=== PATIENT | male | born 1950 | race Caucasian/White ===

== ENCOUNTER 2019-07-06 01:19 | Inpatient (IN) | payer OTHER ==
[~2019-07-06] VITALS: Ht 175.3 cm; Wt 124.7 kg
[2019-07-06] VITALS (7 sets, daily range): BP systolic 142–194; BP diastolic 59–92
[2019-07-06] MEDS ORDERED: NORVASC 2.5 MG2.5 M1 PO (01:33)
[2019-07-06] MEDS ORDERED: LIPITOR10 MG PO (01:33)
[2019-07-06 02:15] LABS: ABSOLUTE EOSINOPHILS 0.2 thou/uL (0.0-0.7); ABSOLUTE LYMPHOCYTES 1.4 thou/uL (0.8-5.3); ABSOLUTE MONOCYTES 0.8 thou/uL (0.0-1.2); ABSOLUTE NEUTROPHILS 9.3 thou/uL (1.6-8.1); BASOPHILS 0.3 %; EOSINOPHILS 1.9 %; HEMATOCRIT 42.1 % (42.0-52.0); HEMOGLOBIN 14.2 gm/dL (14.0-18.0); LYMPHOCYTES 12.2 %; MCH 32.1 pg (26.0-34.0); MCHC 33.8 g/dL (28.0-37.0); MONOCYTES 6.6 %; MPV 9.2 fl. (7.2-11.1); NUCLEATED RBCS 0 /100WBC; PLATELET COUNT* 180 thou/uL (150-400); RBC 4.43 mil/uL (4.50-6.00); RDW-CV 14.5 % (10.5-14.5); WBC 11.8 thou/uL (4.0-11.0)
[2019-07-06 02:44] LABS: CALCIUM 8.6 mg/dL (8.5-10.1); CREATININE 1.1 mg/dL (0.6-1.3)
[2019-07-06 02:49] LABS: ALBUMIN 3.6 g/dL (3.4-5.0); TOTAL BILIRUBIN 0.4 mg/dL (<0.1-1.0)
[2019-07-06 03:01] LABS: URINE BILIRUBIN NEGATIVE (Negative); URINE BLOOD 3+ (Negative); URINE CLARITY CLEAR; URINE COLOR YELLOW; URINE GLUCOSE-RANDOM NEGATIVE (Negative); URINE KETONES NEGATIVE (Negative); URINE LEUKOCYTES-REFLEX NEGATIVE (Negative); URINE NITRITE-REFLEX NEGATIVE (Negative); URINE PROTEIN NEGATIVE (Negative); URINE UROBILINOGEN 0.2 E.U./dl (0.2-1.0)
[2019-07-06 04:10] LABS: CASTS None Seen /LPF (None Seen); SQUAMOUS 0-3 Few /LPF (0-3)
[2019-07-06 04:11] LABS: BACTERIA-REFLEX 1-9 Few /HPF (None Seen); CRYSTALS None Seen /LPF (None Seen); URINE RBC >20 Many /HPF (0-2); URINE WBC-REFLEX 0-5 Rare /HPF (0-5)
--- NOTE | 2019-07-06 11:42 | EKG ---
[place] [address] ELECTROCARDIOGRAM REPORT Name: EVIN MAYS Room: [address] ADM IN .R.#: [id number] Admission: 07/06/19 Attend Phys: Edis Tenorio MD Discharge: Date of : 50 Report #: [id number] THIS REPORT FOR: //name// [facility] Test Date: 2019-07-06 Test Time: 10:27:01 Pat Name: EVIN MAYS Department: Room: [address] Gender: M System Operator: : 1950 Requested By: Junior Polanco Order Number: [id number] Adenike MD: Ron Ortiz Measurements Intervals [place] Rate: 78 P: 58 UT: 180 QRS: 66 QRSD: 87 T: 87 QT: 498 QTc: 568 Interpretive Statements Sinus rhythm Borderline repolarization abnormality Prolonged QT interval No previous ECG available for comparison Electronically Signed On 07-06-2019 11:41:52 CDT by Ron Ortiz [email or web address] <ELECTRONICALLY SIGNED> By: Ron Ortiz MD, [facility] 07/06/19 1141 1027 26 Ron Ortiz MD, FACC /EPI
--- NOTE | 2019-07-06 12:08 | OP ---
[address] [address] OPERATIVE REPORT Name: DAVONEVIN G Room: [address] IN M.R.#: [id number] Admission: 07/06/19 Attend Phys: Edis Tenorio MD Discharge: Date of : 50 Report #: [id number] THIS REPORT FOR: //name// CC: [facility] Edis Tenorio Kiera Caldera DATE OF SERVICE: 07/06/2019 PREOPERATIVE DIAGNOSIS: Left ureteral obstruction. POSTOPERATIVE DIAGNOSIS: Left ureteral obstruction, secondary to left proximal ureteral stone. PROCEDURES PERFORMED: Cystoscopy, left retrograde pyelogram, left JJ stent placement. SURGEON: Hector White MD COMPLICATIONS: None. DRAINS: Included a 6 x 26-cm double-J ureteral stent. SPECIMEN: None. ANESTHESIA TYPE: General. BLOOD LOSS: Negligible. STATEMENT OF MEDICAL INDICATION: This is a 68-year-old male who presented with severe left-sided flank pain. He has never had stones before, but was found by CT scan to have a 7 mm left proximal ureteral stone. Being given the options of management including MET, outpatient ESWL, or cystoscopy with JJ stent, possible ureteroscopy. He has opted for the latter. He understands the procedure, risks, potential complications including but not limited to bleeding, infection, injury to the urinary tract or adjacent structures, need for further procedures. He also understands this is very likely that a stent will be placed only and ureteroscopy may not be able to be performed. This would necessitate a delayed ureteroscopy or lithotripsy. DESCRIPTION OF PROCEDURE: Following informed consent, the patient was taken to the operating room and placed under general anesthesia. He was prepped and draped in sterile fashion in the dorsal lithotomy position. Cystoscopy was carried out. 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 Prostate is moderately obstructive, approximately 60 [place] [address] OPERATIVE REPORT Name: EVIN MAYS Room: [address] IN [facility].#: [id number] Admission: 07/06/19 Attend Phys: Edis Tenorio MD Discharge: Date of : 50 Report #: [id number] volume, with trilobar hyperplasia. Bladder was free of lesions. The left ureteral orifice was tiny in caliber and required the use of a guidewire to even place a 5-Kosovan ureteral catheter to perform the retrograde pyelogram. Therefore, it was felt extremely unlikely to be able to pass the ureteral access sheath to the proximal ureter. Retrograde pyelogram revealed a filling defect in the proximal ureter. Of note, by CT scan, there is a second stone within the renal collecting system on the left side. Following that, then a floppy tipped guidewire was advanced and was snug even on the ureteral stent such that there was a coil in the renal pelvis and a coil in the bladder by fluoroscopy. Following this, the bladder was drained. The patient was given a Toradol injection, B and O suppository, Urojet per urethra, and returned to recovery room in satisfactory condition. The patient will need to follow up next week with a KUB. He will need at least 1, perhaps 2 lithotripsies while a stent is in place for both the proximal ureteral stones, which appears to be displaced into the renal collecting system as well as a second stone in the upper pole bianca. <ELECTRONICALLY SIGNED> By: Hector White MD 07/06/19 1208 1135 [id number] White MD /nt
[2019-07-06] MEDS ORDERED: FLOMAX0.4 MG PO (15:52)
[2019-07-06] MEDS ORDERED: LEVSIN-SL0.125 MG SUBLING (15:54)
[2019-07-06] MEDS ORDERED: CIPRO500 M1 PO (15:55)
[2019-07-06] MEDS ORDERED: SENNA S TABLET1 EACH PO (15:56)
[2019-07-06] MEDS ORDERED: NORCO 5-325 TA1 EAC1 PO (15:59)
[2019-07-06 23:10] LABS: GLYCOHEMOGLOBIN (HGB A1C) 5.9 % (4.8-5.6)
== END 2019-07-06 17:37 | disposition home or self-care (01) | DRG 660 ==
LOC: M.ERS 01:19 → M.ORTHSURG 04:10 → M.TBA-ER 04:10 → M.ORTHSURG 04:57
PROVIDERS: Emergency Medicine; Internal Medicine; ADMIT Internal Medicine
PROC: BT1F1ZZ Fluoroscopy of Left Kidney, Ureter and Bladder using Low Osmolar Contrast (ICD-10-PCS; principal; 2019-07-06)
PROC: 0T778DZ Dilation of Left Ureter with Intraluminal Device, Via Natural or Artificial Opening Endoscopic (ICD-10-PCS; principal; 2019-07-06)
DX: N13.2 Hydronephrosis with renal and ureteral calculous obstruction (principal); Z68.41 Body mass index [BMI] 40.0-44.9, adult; E66.01 Morbid (severe) obesity due to excess calories; I10 Essential (primary) hypertension; E78.00 Pure hypercholesterolemia, unspecified; F17.210 Nicotine dependence, cigarettes, uncomplicated; E78.5 Hyperlipidemia, unspecified; R31.0 Gross hematuria; Z79.899 Other long term (current) drug therapy; Z85.828 Personal history of other malignant neoplasm of skin